=== PATIENT | female | born 1945 | race Caucasian/White ===

== ENCOUNTER 2017-12-20 02:15 | Inpatient (IN) | payer OTHER ==
[~2017-12-20] VITALS: Ht 162.6 cm; Wt 83.9 kg
[~2017-12-20 02:15] MED LIST: TOPROL XL25 M1 PO
--- NOTE | 2017-12-20 09:52 | Operative Report ---
Operative/Inv Procedure Report Surgery Date: 12/20/17 Name of Procedure: Left total knee arthroplasty Pre-Operative Diagnosis: Primary osteoarthritis left knee Post-Operative Diagnosis: SameSame Estimated Blood Loss: less than 50ml Surgeon/Plug Cutting Machine Operator: Armani GARCIA,Keny Hameed Anesthesia: block (spinal) IV Fluids: See anesthesia recordSee anesthesia record Implants: [place] triathlon posterior stabilize knee. Size 4 femur size 4 tibia, 19 polyethylene and a 29 asymmetric patella polyethylene Drains: None Specimens: Bone to pathology Tourniquet: 52 minutes Complications: None Condition: StableStable Operative Indication: The patient is a 72-year-old female with severe osteoarthritis of the left knee. She has failed conservative treatment and wished to proceed with a total knee arthroplasty. The risks and benefits of the procedure were discussed with the patient in the office today. Skills that hand is necessary and provided by physician mri assistant trauma during made with retraction and positioning and retraction a component simply throughout the case. Operative/Procedure Note Note: Once informed consent was obtained and the correct limb was identified the patient brought the operating placed on table in supine position. At the after the administration of spinal anesthesia patient had a Orourke catheter placed and a thigh tourniquet placed on the left lower extremity. Left lower extremity was prepped and draped in usual sterile fashion. To begin the procedure a standard midline incision was made for total knee arthroscopy. Sharp dissection was carried down through the skin and subcutaneous tissue. A medial parapatellar arthrotomy was performed and the patella was everted. The patella fat pad was removed. Patellar thickness was measured to be at 24 mm and a plan resection of 9 mm was taken off the patella without complication. The patella was then sized to be an asymmetric 29 patella. The patellar clamp was placed and the lug holes were drilled. At this point and he was placed in flexion the patella was retracted laterally. Z retractors were placed to protect the collateral ligaments. The cruciate ligaments were resected sharply. The intercondylar notch the femur was prepared in the intramedullary canal of the femur was entered with a step drill. The femoral cutting guide was placed in the intramedullary canal. It was set for 6 valgus cut and 10 mm of bony resection. Bone was passed off as specimen. The femur was then sized to be a size 4 femur. A size 4 4-in-1 cutting block was placed on the femur distally and the inferior anterior, posterior, chamfer cuts were made without complication. Bone was passed off as specimen. The box cut for a size 4 femur was then placed for posterior stabilized knee. Pocket was made without complication. At this point curved osteotome was used to remove posterior osteophytes from the femoral condyles. The medial and lateral menisci were sharply resected. The intramedullary canal of the tibia was entered with a step drill. The tibia was retracted anteriorly the pickle fork retractor. The intramedullary cutting guide for the tibia was placed on the canal and apparent resection of 2 mm of bone was taken off the medial side. This was passed off as specimen. The tibia was sized to be a size 4 tibia. Reduction was done with a 4 tibia and a 4 femur. We started with a 13 mm polyethylene and this was extremely loose when up to a 19 mm polyethylene insert this was stable to varus and valgus stress at 0 and 60 with no mid flexion instability. Near full extension and 110 of flexion. The rotation tibial component was marked. The tibial component was then pinned back in place and the keel cut was made. At this point all joints removed and the cement was mixed on the back table. The total knee components were then cemented in place with the tibia component cemented first followed by the femoral component and the patella component. Excess cement was removed with curettes. The 19 mm polyethylene trial was placed onto the tibial tray and the knee was placed in extension while cement hardened. Once the cement hardened the knee was again taken through range of motion and found to be stable. A 19 mm polyethylene insert was opened and locked onto the tibial tray. The knee was pulse lavaged. The tourniquet was released and bleeding was stopped with electrocautery. The arthrotomy was closed with #1 Vicryl interrupted sutures. The subcutaneous tissue closed with #1 Vicryl 2-0 Vicryl sutures and the skin was closed john. Sterile dressings applied and the patient was awake and taken recovery in stable condition.
--- NOTE | 2017-12-20 10:56 | Admission Core Measures ---
Acute Coronary Syndrome (CM) ACS Core Measures Acute Coronary Syndrome Diagnosis No Congestive Heart Failure (NEW) CHF Core Measures Congestive Heart Failure Diagnosis No Cerebrovascular Accident CVA Core Measures CVA/TIA Diagnosis No Venous Thromboembolism VTE Core Chata (View Protocol) VTE Risk Factors Surgery No Mechanical VTE Prophylaxis d/t N/A MechProphylax Ordered No VTE Pharm Prophylaxis d/t NA PharmProphylax ordered Problem List As ranked by this Provider includes Assessment & Plan 1. Osteoarthritis of left knee HOME MEDS Home Med List Metoprolol Succ XL (Toprol XL) 25 MG TAB 1 TAB PO DAILY ANXIETY (Reported)
--- NOTE | 2017-12-20 10:58 | Surg Short-stay <48hrs Dis Sum ---
Visit Information Visit Dates Admission Date: 12/20/17 Discharge Date: 12/22/17 Surgical Short Stay DC Summary Admission Diagnosis: Primary left knee osteoarthritis Final Diagnosis: Same s/p left knee arthroplasty Procedure(s): Left knee arthroplasty on 12/20/17 Summary/Significant Findings: Patient presented to [facility] for an elective left total knee arthroplasty on 12/20/[address] Lomeli. Patient tolerated the procedure well without complication. She was transferred to the floor in stable condition. Patient was seen an evaluated by physical therapy. Postoperatively, she was tolerating regular diet, voiding spontaneously and her pain was well managed with oral medication. She is medically stable for discharge. Condition at Discharge: Stable Discharge Disposition: home health services Discharge instructions provided to patient/family: Yes Post discharge follow-up plan: Follow up in [address] Lomeli
--- NOTE | 2017-12-20 10:58 | PN- Orthopedic ---
Subjective Subjective: POSTOP CHECK Patient reports numbness in her lower legs. She reports pain is well controlled. She denies chest pain, sob or difficulty breathing. She offers no complaints. Objective Vital Signs and I&Os Vital Signs Date Time Temp Pulse Resp B/P B/P Pulse O2 O2 Flow FiO2 Mean Ox Delivery Rate 12/20 1203 95.4 52 16 124/72 92 Room Air Intake & Output 12/20 1600 12/20 0800 12/20 0000 12/19 1600 12/19 0800 12/19 0000 Intake Total Output Total Balance Patient 185 lb Weight Weight Reported by Patient Measurement Method Physical Exam: Gen - resting comfortably in pacu in nad Cardiac - S1S2 noted Lungs - CTAB Abd - soft, nontender Ext - LLE dressing c/d/i, moves toes, compartment soft, motor intact, diminished sensation due to spinal, alps in place, no edema or calf tenderness Current Medications: Current Medications Sig/Black Start time Last Medication Dose Route Stop Time Status Admin Acetaminophen 0 .STK-MED ONE 12/20 0708 DC PO Acetaminophen 650 MG ONCE 12/20 0000 DC PO 12/20 2359 Apixaban 2.5 MG BID 12/21 0900 AC PO Celecoxib 400 MG ONCE 12/20 0000 DC PO 12/20 2359 Dexamethasone 0 .STK-MED ONE 12/20 0708 DC .ROUTE Dexamethasone 10 MG ONCE 12/20 0000 DC IV 12/20 2359 Dextrose/Lactated 1,000 ML Q13H 12/20 1130 AC 12/20 Ringer's IV 1145 Docusate Sodium 100 MG DAILY NEEDED PRN 12/20 1130 AC PO Gabapentin 0 .STK-MED ONE 12/20 0709 DC PO Gabapentin 300 MG ONCE 12/20 0000 DC PO 12/20 2359 Metoprolol Succinate 25 MG DAILY 12/21 0900 AC PO Midazolam HCl 0 .STK-MED ONE 12/20 0718 DC .ROUTE Morphine Sulfate 2 MG Q3P PRN 12/20 1145 AC IV Morphine Sulfate 2 MG Q3P PRN 12/20 1130 DC IV Morphine Sulfate 4 MG Q3P PRN 12/20 1130 AC IV Ondansetron HCl 4 MG Q6P PRN 12/20 1130 AC IV Oxycodone HCl 0 .STK-MED ONE 12/20 0708 DC PO Oxycodone HCl 10 MG ONCE 12/20 0000 DC PO 12/20 2359 Oxycodone/ 1 TAB Q4P PRN 12/20 1130 AC Acetaminophen PO Oxycodone/ 2 TAB Q4P PRN 12/20 1130 AC Acetaminophen PO Polyethylene Glycol 17 GM DAILY NEEDED PRN 12/20 1130 AC PO Scopolamine HBr 0 .STK-MED ONE 12/20 0708 DC TOP Scopolamine HBr 1 PAT ONCE 12/20 0000 DC TOP 12/20 2359 Senna/Docusate Sodium 2 TAB AT BEDTIME NEED.. 12/20 1130 AC PO Vancomycin HCl 1,250 MG ONCE ONE 12/20 1900 AC Sodium Chloride 250 ML IV 12/20 2013 Vancomycin HCl 1,250 MG ONCE 12/20 0000 DC Sodium Chloride 250 ML IV 12/20 235 Assessment/Plan Assessment/Plan 72 F w/ a hx of CKD who is s/p L TKA due to left knee OA with residual numbness from spinal PT eval, WBAT Advance to reg diet Cont IVF Pain regimen prn Postop abx - vanco x1 DVT ppx - eliquis bid in am Wean O2 Labs in am D/c blum in am Anticipate d/c home w/ hhs in 2-3 days Core Measures Venous Thromboembolism VTE Risk Factors Surgery No Mechanical VTE Prophylaxis d/t N/A MechProphylax Ordered No VTE Pharm Prophylaxis d/t NA PharmProphylax ordered
[2017-12-20 12:03] VITALS: BP 124/72
--- NOTE | 2017-12-20 13:31 | Patient Discharge Instructions ---
Discharge Instructions General Discharge Information You were seen/treated for: Left knee osteoarthritis You had these procedures: Left total knee arthroplasty Watch for these problems: Increased pain, fever, chills, redness, swelling or drainage from incision or inability to bear weight. No bath, but you may shower: Yes Other wound care: Keep incision clean and dry Change dressing daily Diet Continue normal diet: Yes Activity Full Activity/No Limits: No Activity Self Limited: Yes Activity Limited to: Weight bear as tolerated Other activity limits: Use rolling walker as needed Acute Coronary Syndrome Inclusion Criteria At DC or during hospital stay patient has or had the following: ACS DIAGNOSIS No Discharge Core Measures Meds if any: Prescribed or Continued at Discharge Meds if any: NOT Prescribed or Continued at Discharge Congestive Heart Failure Inclusion Criteria At DC or during hospital stay patient has or had the following: CHF DIAGNOSIS No Discharge Core Measures Meds if any: Prescribed or Continued at Discharge Meds if any: NOT Prescribed or Continued at Discharge Cerebrovascular accident Inclusion Criteria At DC or during hospital stay patient has or had the following: CVA/TIA Diagnosis No Discharge Core Measures Meds if any: Prescribed or Continued at Discharge Meds if any: NOT Prescribed or Continued at Discharge Venous thromboembolism Inclusion Criteria VTE Diagnosis No VTE Type NONE VTE Confirmed by (Test) NONE Discharge Core Measures - Per Current guidelines, there needs to be overlap - treatment for the first 5 days of Warfarin therapy. - If discharged on Warfarin prior to 5 days of - overlap therapy, the patient will need to be - assessed for post discharge needs including - *Post discharge parental anticoagulation - *Warfarin and/or parental anticoagulation education - *Follow up date to check INR post discharge At least 5 days overlap therapy as Inpatient No Meds if any: Prescribed or Continued at Discharge Note: Overlap Therapy is Warfarin and Anticoagulant Meds if any: NOT Prescribed or Continued at Discharge
[2017-12-20 14:31] VITALS: BP 148/90
[2017-12-20 16:23] VITALS: BP 152/86
[2017-12-20 17:59] VITALS: BP 130/70
[2017-12-20 22:27] VITALS: BP 146/84
[2017-12-21 02:00] VITALS: BP 140/84
[2017-12-21 06:44] VITALS: BP 160/78
[2017-12-21 08:07] LABS: ABSOLUTE BASOPHIL COUNT 0 /CUMM (0.0-0.2); ABSOLUTE EOSINOPHIL COUNT 0 /CUMM (0.0-0.7); ABSOLUTE GRANULOCYTE CT 12.2 /CUMM (1.4-6.5); BASOPHIL % 0 % (0.0-2.0); EOSINOPHIL % 0 % (0-5); GRANULOCYTE % 80.4 % (42.2-75.2); HEMATOCRIT 34.7 % (37-47); MEAN CORPUSCULAR HGB 26.3 PG (27.0-31.0); MEAN CORPUSCULAR HGB CONC 32.4 G/DL (33.0-37.0); MEAN CORPUSCULAR VOLUME 81.1 FL (81.0-99.0); MEAN PLATELET VOLUME 8.3 FL (7.4-10.4); PLATELET COUNT 172 /CUMM (130-400); RBC DISTRIBUTION WIDTH 14.1 % (11.5-14.5); RED BLOOD CELL CT 4.28 /CUMM (4.20-5.40); WHITE BLOOD CELL COUNT 15.2 /CUMM (4.8-10.8)
[2017-12-21 10:23] VITALS: BP 132/70
--- NOTE | 2017-12-21 10:41 | PN- Orthopedic ---
Subjective Subjective: Pt.has no complaints. Taking Percocoet with reasonable control. She has questions but they are related to other knee for which she expects to have surgery in the near future. Objective Vital Signs and I&Os Vital Signs Date Time Temp Pulse Resp B/P B/P Pulse O2 O2 Flow FiO2 Mean Ox Delivery Rate 12/21 1023 99.1 61 20 132/70 96 Room Air 12/21 0644 98.5 53 20 160/78 97 Room Air 12/21 0200 97.8 74 20 140/84 95 Room Air 12/20 2227 98.6 82 20 146/84 95 12/20 1759 86 20 130/70 94 12/20 1623 97.6 54 20 152/86 96 12/20 1431 97.8 77 20 148/90 96 12/20 1203 95.4 52 16 124/72 92 Room Air Intake & Output 12/21 1600 12/21 0800 12/21 0000 12/20 1600 12/20 0800 12/20 0000 Intake Total 960 1005 450 Output Total 600 500 350 Balance 360 505 100 Intake, IV 600 525 Intake, Oral 360 480 450 Output, Urine 600 500 350 Patient 185 lb Weight Weight Reported by Patient Measurement Method Alert, oriented, sitting in chair , looks comfortable. Lungs are clear Herat regular Abdomen is benign, soft, non tender LLE with bandage on, intacty, warm foot, no significant swelling, neurovascularly intact. Orourke in place with clear , yellow urine. Assessment/Plan Assessment/Plan s/p L TKA for dJD POD#1 Stable hemodynamics. Progressing very well, working with PT on increasing mobility Pain reasonably controlled with oral narcotics. Taking PO well, adequate amounts of urine. Will d/c Orourke and Hep Lock IVF Continue Eliquis for anticoagulation. D/C home in next 24 to 48 hrs. Core Measures Venous Thromboembolism VTE Risk Factors Surgery No Mechanical VTE Prophylaxis d/t N/A MechProphylax Ordered No VTE Pharm Prophylaxis d/t NA PharmProphylax ordered
[2017-12-21 13:33] VITALS: BP 142/70
[2017-12-21 22:17] VITALS: BP 150/90
[2017-12-22 06:13] VITALS: BP 180/90
--- NOTE | 2017-12-22 07:44 | PN- Orthopedic ---
Subjective Subjective: POD #2 s/p left TKR. Resting comfortably at edge of bed. No N/V, F/C, CP/SOB. Ambulating with PT well. Voiding spontaneously. Tolerating a regular diet. Passing flatus. Objective Vital Signs and I&Os Vital Signs Date Time Temp Pulse Resp B/P B/P Pulse O2 O2 Flow FiO2 Mean Ox Delivery Rate 12/22 0613 99.3 90 20 180/90 94 Room Air 12/21 2217 98.4 74 20 150/90 95 12/21 1333 98.5 60 20 142/70 93 Room Air 12/21 1023 99.1 61 20 132/70 96 Room Air Intake & Output 12/22 0800 12/22 0000 12/21 1600 12/21 0800 12/21 0000 12/20 1600 Intake Total 400 1065.50 960 1005 450 Output Total 250 300 600 500 350 Balance 150 765.50 360 505 100 Intake, IV 345.50 600 525 Intake, Oral 400 720 360 480 450 Number 0 Bowel Movements Output, Urine 250 300 600 500 350 Patient 185 lb Weight Weight Reported by Patient Measurement Method Physical Exam: Gen: AAOx3 in NAD Cor: S1+S2+ Lungs: CTA aysha Abd: soft Ext: left leg maximiliano wrap/dressing removed. Incision intact with john. No drainage or surrounding erythema. Slight ecchymosis noted around staple line. Palpable DP pulse. Dorsiflexion/plantar flexion intact. Sensation intact. Current Medications: Current Medications Sig/Black Start time Last Medication Dose Route Stop Time Status Admin Apixaban 2.5 MG BID 12/21 09 AC 12/21 PO 2043 Dextrose/Lactated 1,000 ML Q13H 12/20 1130 DC 12/21 Ringer's IV 0017 Docusate Sodium 100 MG DAILY NEEDED PRN 12/20 1130 AC PO Metoprolol Succinate 25 MG DAILY 12/21 0900 AC PO Morphine Sulfate 2 MG Q3P PRN 12/20 1145 AC 12/20 IV 1918 Morphine Sulfate 4 MG Q3P PRN 12/20 1130 AC IV Ondansetron HCl 4 MG Q6P PRN 12/20 1130 AC IV Oxycodone/ 1 TAB Q4P PRN 12/20 1130 AC 12/22 Acetaminophen PO 0715 Oxycodone/ 2 TAB Q4P PRN 12/20 1130 AC 12/21 Acetaminophen PO 1558 Patient Medication 1 ED ONE ONE 12/21 1700 DC Teaching ED 12/21 1701 Polyethylene Glycol 17 GM DAILY NEEDED PRN 12/20 1130 AC PO Senna/Docusate Sodium 2 TAB AT BEDTIME NEED.. 12/20 1130 AC PO Results Last 48 Hours of Labs: Laboratory Tests 12/21 0630 Chemistry Sodium (137 - 145 mmol/L) 137 Potassium (3.5 - 5.1 mmol/L) 4.7 Chloride (98 - 107 mmol/L) 102 Carbon Dioxide (22 - 30 mmol/L) 25 Anion Gap (5 - 16) 10 BUN (7 - 17 mg/dL) 33 H Creatinine (0.5 - 1.0 mg/dL) 1.2 H Estimated GFR (>60 ml/min) 44 L BUN/Creatinine Ratio (7 - 25 %) 27.5 H Hematology CBC w Diff NO MAN DIFF REQ WBC (4.8 - 10.8 /CUMM) 15.2 H RBC (4.20 - 5.40 /CUMM) 4.28 Hgb (12.0 - 16.0 G/DL) 11.3 L Hct (37 - 47 %) 34.7 L MCV (81.0 - 99.0 FL) 81.1 MCH (27.0 - 31.0 PG) 26.3 L MCHC (33.0 - 37.0 G/DL) 32.4 L RDW (11.5 - 14.5 %) 14.1 Plt Count (130 - 400 /CUMM) 172 MPV (7.4 - 10.4 FL) 8.3 Gran % (42.2 - 75.2 %) 80.4 H Lymphocytes % (20.5 - 51.1 %) 6.5 L Monocytes % (1.7 - 9.3 %) 13.1 H Eosinophils % (0 - 5 %) 0 Basophils % (0.0 - 2.0 %) 0 Absolute Granulocytes (1.4 - 6.5 /CUMM) 12.2 H Absolute Lymphocytes (1.2 - 3.4 /CUMM) 1.0 L Absolute Monocytes (0.10 - 0.60 /CUMM) 2.0 H Absolute Eosinophils (0.0 - 0.7 /CUMM) 0 Absolute Basophils (0.0 - 0.2 /CUMM) 0 Assessment/Plan Assessment/Plan A: POD #2 s/p L TKR; AVSS Plan: D/C home with services today. Core Measures Venous Thromboembolism VTE Risk Factors Surgery No Mechanical VTE Prophylaxis d/t N/A MechProphylax Ordered No VTE Pharm Prophylaxis d/t NA PharmProphylax ordered
[2017-12-22] MEDS ORDERED: ELIQUIS2.5 M1 PO (09:48)
[2017-12-22] MEDS ORDERED: PERCOCET 5-3251 EACH PO (09:48)
[2017-12-22 11:33] VITALS: BP 140/80
--- NOTE | 2017-12-22 12:16 | RADIOLOGY REPORT ---
EXAMINATION: XR KNEE, LEFT CLINICAL INFORMATION: Left total knee arthroplasty COMPARISON: 01/12/2016 TECHNIQUE: AP and lateral views of the left knee. FINDINGS: Large body habitus. The components of the total knee arthroplasty are in their expected positions. Alignment is anatomic at the patellofemoral and tibiofemoral compartments. No acute periprosthetic fracture. Postoperative knee joint effusion, soft tissue swelling and anterior skin john in place. IMPRESSION: - There are expected postoperative changes. - Satisfactory position and alignment of components of the left total knee arthroplasty.
== END 2017-12-22 10:55 | disposition home health service (06) | DRG 470 ==
LOC: SDA 02:15 → ENRESERV 09:47 → ENTRNSPT 10:52 → EDTRNSPTSTS 11:07 → EDTRNSPT 11:07 → 2NA 11:17 → CMPTRNSPT 11:26 → ENTRNSPT 12-22 10:47 → 2NA 12-22 10:55 → EDTRNSPT 12-22 11:33 → EDTRNSPTSTS 12-22 11:44 → EDTRNSPT 12-22 11:44 → CMPTRNSPT 12-22 11:57
PROVIDERS: Physician Assistant Surgical
PROC: 0SRD0J9 Replacement of Left Knee Joint with Synthetic Substitute, Cemented, Open Approach (ICD-10-PCS; principal; 2017-12-20)
PROC: 3E0T3BZ Introduction of Anesthetic Agent into Peripheral Nerves and Plexi, Percutaneous Approach (ICD-10-PCS; principal; 2017-12-20)
DX: M17.12 Unilateral primary osteoarthritis, left knee (principal)
CPT/HCPCS: 2NASP; 36415; 36592; 73560-LT; 82436; 87071; 87086; 97110-GO; 97116-GO; 97161-GP; 97530-GO; C1713; C9290; J1100; J2405; J3370; J7040